=== PATIENT | female | born 1975 | race Caucasian/White ===

== ENCOUNTER → 2018-08-18 | Outpatient (CLI) | payer MEDICARE, OTHER ==
--- NOTE | 2018-08-18 16:03 | Diagnostic Imaging Report ---
INDICATION: Fell, knee pain. FINDINGS: Three views were obtained. There are no prior studies available for comparison. On the AP view, there is a linear lucency extending obliquely through the lateral aspect of the patella. This finding is difficult to appreciate on the other two views but is suspicious for a nondisplaced fracture. If further imaging is desired, then CT will be recommended. No other fracture or acute bony abnormality is appreciated. The medial and lateral compartments of the knee joint are well maintained, but there is narrowing of the patellofemoral space. The soft tissues are unremarkable. In particular, there is no sign of lipohemarthrosis. IMPRESSION: 1. The findings are suspicious for a nondisplaced fracture involving the lateral aspect of the patella. Recommendations as above. 2. There is no acute bony abnormality noted otherwise. Dictated by: Dictated on workstation # [id number]
== END ==
LOC: RAD 14:39
PROVIDERS: ATTEND Nurse Practitioner Family
DX: M89.9 Disorder of bone, unspecified (principal); M25.561 Pain in right knee; W19.XXXA Unspecified fall, initial encounter
CPT/HCPCS: 73562

== ENCOUNTER → 2018-09-28 | Outpatient (CLI) | payer MEDICARE ==
--- NOTE | 2018-09-28 15:43 | Diagnostic Imaging Report ---
EXAMINATION: Right knee at 08:50 a.m. INDICATION: Patellar fracture. FINDINGS: Three views were obtained. As noted on the prior exam of 08/18/2018, there is a slightly displaced fracture of the superolateral aspect of the patella. There is only little if any healing callus formation evident about the fracture site. No other acute or subacute bony abnormality is appreciated. The knee joint is fairly well maintained. The soft tissues are unremarkable. IMPRESSION: 1. There is a subacute slightly displaced fracture of the superolateral aspect of the patella. There is little if any healing callus formation about the fracture site. 2. There is no acute or subacute bony abnormality noted otherwise. Dictated by: Dictated on workstation # [id number]
== END ==
LOC: RAD 08:47
PROVIDERS: ATTEND Nurse Practitioner
DX: S82.024A Nondisplaced longitudinal fracture of right patella, initial encounter for closed fracture (principal)
CPT/HCPCS: 73562

== ENCOUNTER 2019-06-07 13:39 | Outpatient (CLI) | payer MEDICARE ==
[2019-06-07 14:23] LABS: HEMOGLOBIN 12.5 G/DL (11.5-16.0); MEAN PLATELET VOLUME 9.8 FL (7.4-10.4); RED CELL DISTRIBUTION WIDTH 12.4 % (10.0-14.5); WHITE BLOOD COUNT 4.6 10^3/uL (4.3-11.0)
[2019-06-07 14:24] LABS: CLARITY,URINE SL CLOUDY; COLOR,URINE YELLOW; GLUCOSE, URINE (UA) NEGATIVE (NEGATIVE); KETONES,URINE NEGATIVE (NEGATIVE); LEUKOCYTE ESTERASE ,URINE NEGATIVE (NEGATIVE); NITRITE,URINE NEGATIVE (NEGATIVE); PROTEIN,URINE NEGATIVE (NEGATIVE)
[2019-06-07 14:38] LABS: BACTERIA,URINE FEW /HPF; BILIRUBIN,URINE 1+ (NEGATIVE)
[2019-06-07 14:43] LABS: ALANINE AMINOTRANSFERASE 230 U/L (0-55); ALBUMIN 3.8 GM/DL (3.2-4.5); ALKALINE PHOSPHATASE 195 U/L (40-136); BILIRUBIN,TOTAL 0.3 MG/DL (0.1-1.0); BUN/CREATININE RATIO 8; CALCIUM 8.8 MG/DL (8.5-10.1); CARBON DIOXIDE 25 MMOL/L (21-32); CHLORIDE 108 MMOL/L (98-107); CREATININE SERUM 0.63 MG/DL (0.60-1.30); GFR ESTIMATED > 60; GLUCOSE 114 MG/DL (70-105); POTASSIUM 3.8 MMOL/L (3.6-5.0); SODIUM 141 MMOL/L (135-145); TOTAL PROTEIN 6.4 GM/DL (6.4-8.2)
[2019-06-07] MEDS ORDERED: LACTATED RINGERS 2,000 ML IV SCH (14:45)
[2019-06-07] MEDS ORDERED: ONDANSETRON 4 MG/2 ML (SDV) Z0FRAN IV PRN (14:45)
[2019-06-07] MEDS ORDERED: KETOROLAC 30 MG/ML VIAL IV PRN (14:45)
[2019-06-07 16:35] VITALS: BP 138/68
== END 2019-06-07 16:35 | disposition home or self-care (01) ==
LOC: SDC 13:39
PROVIDERS: ATTEND Nurse Practitioner Family
DX: A08.4 Viral intestinal infection, unspecified (principal); E86.0 Dehydration; R00.0 Tachycardia, unspecified
CPT/HCPCS: 36415; 80053; 81000; 85027; 96374; 96375

== ENCOUNTER 2019-08-26 18:50 | Emergency (ER) | payer MEDICARE ==
[~2019-08-26] VITALS: Ht 167 cm; Wt 125.0 kg
[2019-08-26] MEDS ORDERED: LIDOCAINE 1% INJ 20 ML 20 ML VIAL INJ ONE (19:00)
[2019-08-26] MEDS ORDERED: TETANUS,DIPTH,PERTUSS P/F (BOOSTRIX) 0.5 ML VIAL IM ONE (19:00)
[2019-08-26] MEDS ORDERED: AMOX-358 PO (19:01)
--- NOTE | 2019-08-26 19:02 | ED Fall/Injury ---
General Stated Complaint: FELL/INJ RT ELBOW/HIT HEAD Source: patient Exam Limitations: no limitations History of Present Illness Date Seen by Provider: Aug 26, 2019 Time Seen by Provider: 18:58 Initial Comments To ER with reports of a fall at home, history of multiple sclerosis, has been moving and fell today. She did hit her head but did not lose consciousness, recalls all events, no neck pain, no severe headache, no anticoagulant use. She has a laceration of the dorsal right elbow, limited range of motion of the right elbow secondary to pain, right shoulder pain. Occurred: just prior to arrival Severity: moderate Injuries/Pain Location: head Context: tripped Loss of Consciousness: no loss of consciousness Allergies and Home Medications Allergies Coded Allergies: cephalexin (Unverified Allergy, Unknown, 06/07/19) Patient Home Medication List Home Medication List Reviewed: Yes Review of Systems Review of Systems Constitutional: see HPI Eyes: No Symptoms Reported Ears, Nose, Mouth, Throat: no symptoms reported Respiratory: no symptoms reported Cardiovascular: no symptoms reported Genitourinary: no symptoms reported Musculoskeletal: no symptoms reported Skin: see HPI Psychiatric/Neurological: No Symptoms Reported Past Qfifyiv-Odkoov-Ykciuu Hx Patient Social History Recent Foreign Travel: No Contact w/Someone Who Travel: No Physical Exam Vital Signs Capillary Refill : Height, Weight, BMI Height: '" Weight: lbs. oz. kg; BMI Method: General Appearance: WD/WN, no apparent distress HEENT: PERRL/EOMI, normal ENT inspection Neck: non-tender, full range of motion Respiratory: no respiratory distress, no accessory muscle use Gastrointestinal: normal bowel sounds, non tender, soft Extremities: normal capillary refill, other (2.5 cm laceration posterior right elbow) Neurologic/Psychiatric: alert, normal mood/affect, oriented x 3 Skin: normal color, warm/dry Progress/Results/Core Measures Results/Orders My Orders Orders - SANKET SANCHEZ APRN Dipht,Pertuss(Acell),Tet Adult (Boostrix (08/26/19 19:00) Lidocaine 1% Inj 20 Ml (Xylocaine 1% Inj (08/26/19 19:00) Shoulder, Right, 3 Views (08/26/19 18:57) Elbow, Right, 3 Views (08/26/19 18:57) Departure Impression Primary Impression: Fall at home Qualified Codes: W19.XXXA - Unspecified fall, initial encounter; Y92.009 - Unspecified place in unspecified non-institutional (private) residence as the place of occurrence of the external cause Additional Impression: Elbow laceration Qualified Codes: S51.011A - Laceration without foreign body of right elbow, initial encounter Disposition: 01 HOME, SELF-CARE Condition: Stable Departure-Patient Inst. Decision time for Depature: 19:00 Referrals: KAYCE VILLANUEVA DO (PCP) Primary Care Physician FABRICIO VILLANUEVA DNP (Family) Primary Care Physician Patient Instructions: Laceration Repair With Stitches (DC) Add. Discharge Instructions: 1. Antibiotic as directed 2. Follow-up with her doctor next week 3. Stitches should be removed in about 12 days. Antibiotics as directed. Scripts Amoxicillin/Potassium Clav (Augmentin 875-125 Tablet) 1 Each Tablet 1 EACH PO ONCE, #10 TAB 0 Refills Prov: SANKET SANCHEZ APRN 08/26/19 Work/School Note: Work Release Form Date Seen in the Emergency Department: Aug 26, 2019 Return to Work: Aug 28, 2019 SANKET SANCHEZ APRN Aug 26, 2019 19:02
[2019-08-26] MEDS ORDERED: AUGMENTIN 500 MG TAB (AMOXICILLIN/CLAVULANATE) PO SCH (19:15)
--- NOTE | 2019-08-26 19:31 | Diagnostic Imaging Report ---
INDICATION: Right elbow pain. COMPARISON: None available. TECHNIQUE: Three views of the right elbow were obtained. FINDINGS: No elbow joint effusion. No acute fracture or traumatic malalignment. Mild prominence of the sublime tubercle of the ulna may be due to enthesopathy. Joint spaces are preserved. No radiopaque foreign body. Soft tissue laceration is likely present along the posterior aspect of the elbow. IMPRESSION: No acute fracture or radiopaque foreign body. Dictated by: Dictated on workstation # [id number]
--- NOTE | 2019-08-26 19:31 | Diagnostic Imaging Report ---
INDICATION: Right shoulder pain after fall. COMPARISON: None available. TECHNIQUE: 3 views of right shoulder were obtained. FINDINGS: No acute fracture or traumatic malalignment. Subacromial space is preserved. Mild degenerative arthritis of the acromioclavicular joint. Tiny lawrence of ossification along the posterior aspect of the humeral head may represent calcific tendinosis of the rotator cuff. IMPRESSION: 1. No acute fracture about the right shoulder. Dictated by: Dictated on workstation # [id number]
[2019-08-26 19:53] VITALS: BP 119/78
[2019-08-26] MEDS ORDERED: AUGMENTIN 875 MG TAB (AMOXICILLIN/CLAVULANATE) PO SCH (20:00)
== END 2019-08-26 19:55 | disposition home or self-care (01) ==
LOC: EDUNIT# 18:50 → ER 18:52
DX: S51.011A Laceration without foreign body of right elbow, initial encounter (principal); Z23 Encounter for immunization; Z88.1 Allergy status to other antibiotic agents; W01.198A Fall on same level from slipping, tripping and stumbling with subsequent striking against other object, initial encounter; Y92.009 Unspecified place in unspecified non-institutional (private) residence as the place of occurrence of the external cause
CPT/HCPCS: 73030; 73080; 90471; 90715

== ENCOUNTER → 2021-06-04 | Outpatient (CLI) | payer MEDICARE ==
[~2021-06-04] MED LIST: AMOX-358 PO
--- NOTE | 2021-06-04 11:10 | Diagnostic Imaging Report ---
INDICATION: Lumbar pain. AP, oblique, and lateral views of the lumbar spine are obtained. FINDINGS: Lumbar spinal curvature and alignment are unremarkable. Vertebral body heights and disc spaces are maintained. There is mild endplate spurring at L5-S1. No lytic or sclerotic focus is identified. There is no evidence of spondylolysis or spondylolisthesis. IMPRESSION: Probable localized L5-S1 degenerative endplate spurring without other lumbar spinal abnormality. Dictated by: Dictated on workstation # [id number]
== END ==
LOC: RAD 09:23
PROVIDERS: ATTEND Nurse Practitioner Family
DX: M46.07 Spinal enthesopathy, lumbosacral region (principal)
CPT/HCPCS: 72110

== ENCOUNTER → 2021-09-18 | Outpatient (CLI) | payer MEDICARE ==
--- NOTE | 2021-09-18 16:15 | Diagnostic Imaging Report ---
PROCEDURE: Pelvic comp/transvaginal sonogram. TECHNIQUE: Complete transabdominal and transvaginal pelvic ultrasound was performed. In addition, limited pelvic Doppler was performed. INDICATION: Pelvic pain and no menses for three months. FINDINGS: Uterus is retroverted measuring 8.0 x 4.9 x 5.1 cm. There are multiple cervical nabothian cysts present, largest approximately 1 cm. Endometrium is 12 mm in thickness. No myometrial mass is identified. The right ovary measures 2.9 x 2.3 x 2.3 cm and left ovary measures 3.6 x 2.3 x 1.9 cm. Both ovaries contain multiple follicles. Left ovary contains a 2.2 cm cyst. There is blood flow to both ovaries. IMPRESSION: Unremarkable transabdominal and transvaginal pelvic ultrasound apart from a 2.2 cm left ovarian cyst. Dictated by: Dictated on workstation # [id number]
--- NOTE | 2021-09-19 09:32 | Diagnostic Imaging Report ---
INDICATION: Routine screening. COMPARISON: 07/22/2017 and 12/26/2013. TECHNIQUE: 2D and 3D bilateral screening mammography was performed with CAD. FINDINGS: Scattered fibroglandular densities are identified bilaterally. The parenchymal pattern is stable. No mass or malignant-appearing microcalcifications are seen. There are scattered benign calcifications noted. The axillae are unremarkable. IMPRESSION: No mammographic features suspicious for malignancy are identified. ACR BI-RADS Category 2: Benign findings. Result letter will be mailed to the patient. Note: At least 10% of breast cancer is not imaged by mammography. Dictated by: Dictated on workstation # [id number]
== END ==
LOC: RAD 14:15
PROVIDERS: ATTEND Obstetrics & Gynecology
DX: Z12.31 Encounter for screening mammogram for malignant neoplasm of breast (principal); N83.202 Unspecified ovarian cyst, left side
CPT/HCPCS: 76830; 76856; 77063; 77067

== ENCOUNTER → 2021-12-31 | Outpatient (CLI) | payer MEDICARE ==
--- NOTE | 2021-12-31 11:54 | Diagnostic Imaging Report ---
INDICATION: Fall and pain. TIME OF EXAM: 11:01 AM. COMPARISON: Correlation is made with the prior right knee radiograph from 09/28/2018. FINDINGS: The previously noted fracture through the lateral aspect of the patella is again noted. The fracture line remains visible, consistent with a nonunion. There is tricompartmental degenerative change with joint space narrowing and marginal spurring. There is no effusion. IMPRESSION: Nonunion fracture of the patella. No new abnormality is detected. Dictated by: Dictated on workstation # [id number]
== END ==
LOC: RAD FS 10:46
PROVIDERS: ATTEND Nurse Practitioner
DX: M17.9 Osteoarthritis of knee, unspecified (principal); S82.001A Unspecified fracture of right patella, initial encounter for closed fracture
CPT/HCPCS: 73562

== ENCOUNTER 2022-09-27 18:17 | Emergency (ER) | payer MEDICARE ==
[2022-09-27] MEDS ORDERED: RX-MUPIROCIN (BACTROBAN) 2% OINT 22 GM TUBE TOP STA (18:35)
--- NOTE | 2022-09-27 18:38 | ED Upper Extremity ---
General Stated Complaint: LEFT FINGER LAC Source: patient History of Present Illness Date Seen by Provider: Sep 27, 2022 Time Seen by Provider: 18:30 Initial Comments PT ARRIVES VIA POV FROM HOME C/O INJURY TO LEFT INDEX FINGER STATES 30 MINUTES AGO, SHE WAS USING A SERVICE DISPATCHER, AND CUT HER LEFT INDEX FINGER ON THE BELT--SHE STATES IT "SEARED" IT AT THE SAME TIME. NO BLEEDING AT THIS TIME NO OTHER INJURIES FROM THE INCIDENT HAS NOT TAKEN ANYTHING FOR PAIN NO PARESTHESIAS OR MOTOR DEFICITS SHE IS RIGHT HANDED NO PRIOR INJURIES TO THIS HAND/FINGER SHE IS UP TO DATE ON TETANUS VACCINE. 08/26/2019 PT HAS HISTORY OF M.S. PCP; DR. VILLANUEVA Allergies and Home Medications Allergies Coded Allergies: cephalexin (Unverified Allergy, Unknown, 06/07/19) Patient Home Medication List Home Medication List Reviewed: Yes Amoxicillin/Potassium Clav (Augmentin 875-125 Tablet) 1 Each Tablet, 1 EACH PO ONCE Prescribed by: SANKET SANCHEZ on 08/26/191900 Review of Systems Constitutional: no symptoms reported Musculoskeletal: no symptoms reported Skin: see HPI Psychiatric/Neurological: No Symptoms Reported Past Ypakazt-Wzrryo-Clqmgd Hx Past Medical History Surgeries: Yes (BARIATRIC SLEEVE) Abdominal, Gallbladder, Orthopedic Respiratory: No Cardiac: No Neurological: Yes Multiple Sclerosis Reproductive Disorders: Yes Female Reproductive Disorders: Menstrual Problems, Endometriosis Genitourinary: No Gastrointestinal: Yes (S/P MACHELLE; BARIATRIC GASTRIC SLEEVE) Gall Bladder Disease Musculoskeletal: Yes (M.S.) Endocrine: Yes (OBESITY) Hypothyroidsim HEENT: No Cancer: No Psychosocial: Yes Anxiety, Depression Integumentary: No Blood Disorders: No Family Medical History PAST SURGICAL HISTORY: -BARIATRIC SURGERY--GASTRIC SLEEVE -EXPLORATORY LAPAROSCOPY FOR ENDOMETRIOSIS -KNEE SCOPE -CHOLECYSTECTOMY Physical Exam Vital Signs Vital Signs - First Documented 09/27/22 18:28 Temp 36.5 Pulse 100 Resp 18 B/P (MAP) 148/96 (113) Capillary Refill : Height, Weight, BMI Height: '" Weight: lbs. oz. kg; 44.00 BMI Method: General Appearance: WD/WN, no apparent distress, obese Hand: Left (LEFT INDEX FINGER--PALMAR ASPECT AT DIP JOINT WITH 1 1/2 CM VERY SUPERFICIAL SKIN ABRASION/AVULSION-THIN STRIP OF TISSUE. NO BLEEDING. MOTOR/SENSORY/VASCULAR INTACT. NO BONY TENDERNESS OR DEFORMITY OR DEFECT.) Neurologic/Tendon: normal sensation, normal motor functions, normal tendon functions Neurologic/Psychiatric: hand paster II-XII nml as tested, no motor/sensory deficits, alert, normal mood/affect, oriented x 3 Procedures/Interventions Splinting and Joint Reduction : Splint Application: Finger Progress/Results/Core Measures Results/Orders My Orders Orders - MARCI LEWIS DO Rx-Mupirocin 2% Oint (Rx-Bactroban) (09/27/22 18:35) Wound Dressing-Ed (09/27/22 18:35) Ed Ortho/Other Supplies Order (09/27/22 18:38) Vital Signs/I&O 09/27/22 09/27/22 18:28 18:55 Temp 36.5 36.5 Pulse 100 100 Resp 18 18 B/P (MAP) 148/96 (113) 148/96 Progress Progress Note : Progress Note WOUND DOES NOT REQUIRE REPAIR--IS VERY SUPERFICIAL SKIN AVULSION/ABRASION, NOT BLEEDING. CLEANED AND DRESSED WITH BACTROBAN AND GAUZE BASEBALL SPLINT APPLIED DUE TO LOCATION OF THE WOUND--FLEXOR PIP JOINT--TO ASSIST WITH HEALING. DISCUSSED ANTICIPATED COURSE, SYMPTOMATIC TREATMENT, WOUND CARE, NEED FOR FOLLOW UP AND RETURN PRECAUTIONS. Departure Impression Primary Impression: Abrasion of skin of finger of left hand Disposition: 01 HOME, SELF-CARE Condition: Stable Departure-Patient Inst. Decision time for Depature: 18:36 Referrals: KAYCE VILLANUEVA DO (PCP/Family) Primary Care Physician Patient Instructions: Abrasions ED, Wound Care ED Add. Discharge Instructions: CLEAN WOUND TWICE A DAY WITH ANTIBACTERIAL SOAP AND WATER, APPLY ANTIBIOTIC OINTMENT AND FRESH DRESSING TWICE A DAY ICE TO AREA AT 20 MINUTE INTERVALS NEEDED FOR PAIN WEAR FINGER SPLINT NEEDED FOLLOW UP WITH YOUR DR NEEDED MARCI LEWIS DO Sep 27, 2022 18:38
[2022-09-27 18:55] VITALS: BP 148/96
== END 2022-09-27 18:56 | disposition home or self-care (01) ==
LOC: EDUNIT# 18:17 → ER 18:18
DX: S60.411A Abrasion of left index finger, initial encounter (principal); E66.9 Obesity, unspecified; Z68.41 Body mass index [BMI] 40.0-44.9, adult; W29.8XXA Contact with other powered hand tools and household machinery, initial encounter
CPT/HCPCS: 29130

== ENCOUNTER → 2023-05-11 | Outpatient (CLI) | payer MEDICARE | LOC: EDBD 14:00 → CARD 14:00 → MERGE 14:00 | PROVIDERS: ATTEND Nurse Practitioner Family | DX: I51.7 Cardiomegaly (principal) | CPT/HCPCS: 93306 ==